=== PATIENT | male | born 1935 | race Caucasian/White ===

== ENCOUNTER 2017-04-10 18:51 | Inpatient (IN) | payer MEDICARE, OTHER ==
[~2017-04-10] VITALS: Ht 175.2 cm; Wt 60.6 kg
--- NOTE | ~2017-04-10 | WRIGHTHP ---
[place], [place] PATIENT HISTORY AND PHYSICAL EXAM [id number] #: [id number] ROOM: 522 DOCTOR: YOSVANY DIAZ MD BIRTHDATE: [birth year] DOS: 04/11/2017 HISTORY OF PRESENT ILLNESS: The patient is an 81-year-old gentleman with a past medical history of: 1. Adult failure to thrive, recurrent falls and poor compliance with treatment and poor insight into medical issues. 2. Benign essential hypertension, poorly controlled. 3. Benign prostatic hypertrophy. 4. Chronic kidney disease stage 3. 5. Left ventricular hypertrophy. 6. Multiinfarct dementia. 7. Small vessel disease of the brain. 8. Chronic atrial fibrillation with patient not anticoagulated because he is a high risk for falling injury and bleeding. The patient presented to [facility] and was seen by Dr. Pace for feeling very weak, palpitations and he was found to be in atrial fibrillation with rapid ventricular response. Dr. Pace recommended admission and further management. The patient apparently lives at home and he was having ambulatory dysfunction. No chest pain. No fainting episode. No other GI or urinary symptoms. REVIEW OF SYSTEMS: LUNGS: With chronic shortness of breath. GASTROINTESTINAL: No nausea, vomiting, diarrhea or constipation. CARDIOVASCULAR: No chest pain, he does complain of palpitations. FAMILY HISTORY: Noncontributory. MEDICATIONS: Flomax, Plavix, lisinopril and Norvasc. PHYSICAL EXAMINATION: GENERAL: Alert and oriented, poor historian. Generalized weakness. VITAL SIGNS: Blood pressure 120/86, heart rate 60 beats per minute, going up to 98 beats per minute, breathing 20 times per minute, temperature of 98.1 degrees Fahrenheit. HEENT AND NECK: Extraocular movements are intact. Sclerae are anicteric. Oral mucosa is moist and clean. No obvious facial weakness. Neck is supple without any lymphadenopathy. No thyromegaly. No JVD. No carotid arterial bruits. LUNGS: Clear to auscultation. No wheezing. No rhonchi. CARDIOVASCULAR SYSTEM: Heart rate was irregularly irregular in rate and rhythm. S1 and S2 audible. ABDOMEN: Soft, nontender. No obvious organomegaly. Bowel sounds are present. No obvious herniation. EXTREMITIES: Without significant cyanosis or edema. Warm to touch. CENTRAL NERVOUS SYSTEM: Alert and oriented x 3. Cranial nerves II-XII are intact. Speech is normal. The patient is able to move all extremities. Normal muscle strength. Deep tendon reflexes are equal on both sides. Plantars were downgoing. [place], [place] PATIENT HISTORY AND PHYSICAL EXAM NAME: EDILBERTO HAYNES UNIT #: [id number] ROOM: 522 DOCTOR: YOSVANY DIAZ MD BIRTHDATE: [birth year] IMPRESSION: 1. Advanced adult failure to thrive with recurrent falls, palpitations. The patient started on physical therapy and I will try to get him to custodial facility for rehabilitation. 2. Ambulatory dysfunction. The patient to work with physical therapy. 3. Chronic atrial fibrillation with rapid ventricular response. The patient is not anticoagulated because of his recurrent falls and high risk for bleeding and head injury. 4. Multi-infarct dementia with small vessel disease of the brain. The patient treated with Plavix. 5. Benign essential hypertension. Blood pressures to be monitored and treated. 6. Benign prostatic hypertrophy and urinary retention, asymptomatic at this time. YOSVANY DIAZ MD CM:HISPHYS:PATIENT HISTORY AND PHYSICAL EXAMINATION 7 6 YOSVANY DIAZ MD 04/11/17 0948 interface
--- NOTE | ~2017-04-10 | DS ---
[place], [place] DISCHARGE SUMMARY NAME: EDILBERTO HAYNES UNIT #: [id number] ROOM: 522 DOCTOR: YOSVANY DIAZ MD BIRTHDATE: [birth year] DOS: 04/13/2017 DISCHARGE DIAGNOSES: 1. Adult failure to thrive, ambulatory dysfunction, recurrent falls. The patient being sent to long term facility. 2. Ambulatory dysfunction. The patient worked with physical therapy. 3. Chronic atrial fibrillation with rapid ventricular response. 4. Multi-infarct dementia and small vessel disease of the brain. 5. Benign essential hypertension. 6. Benign prostatic hyperplasia and urine retention treated. 7. Left ventricular hypertrophy. 8. Chronic kidney disease stage 3. HOSPITAL COURSE: 1. The patient presented to the Emergency Department at [facility], brought from home where his with feeling very weak, having palpitations and was seen by Dr. Pace who recommended admission and further management. The patient was admitted for atrial fibrillation with rapid ventricular response, feeling very weak, having recurrent falls and he is not a good candidate for anticoagulation because of high risk for head injury and bleed. The patient is very weak and started on physical therapy, encouraged to eat and heart rate is controlled. The patient and his have agreed to send him to long term for rehabilitation because his is unable to take care of him at home. At this time considering that he needs a lot of help with activities of daily living. 2. Multi-infarct dementia, small vessel disease of the brain. The patient is not a good historian and does get confused off and on. The patient was treated with Plavix. 3. Benign essential hypertension. Blood pressure is being monitored and controlled. 4. Advanced disability, weakness and ambulatory dysfunction. The patient being sent to long term facility for rehabilitation. LABORATORY DATA: Urine cultures negative. Blood cultures negative x 2. Urine drug screen was negative except for opioids. DISCHARGE MANAGEMENT: Milk of magnesia 30 mL daily p.r.n. for constipation, Tylenol 1 gram t.i.d. p.r.n. for pain and fever, Flomax 0.4 mg a day, Plavix 75 mg daily, lisinopril 40 mg a day and amlodipine 10 mg a day. Consult physical therapy. [place], [place] DISCHARGE SUMMARY NAME: EDILBERTO HAYNES UNIT #: [id number] ROOM: 522 DOCTOR: YOSVANY DIAZ MD BIRTHDATE: [birth year] YOSVANY DIAZ MD CM:SANDY [id number] YOSVANY DIAZ MD 04/13/17 2147 interface
--- NOTE | ~2017-04-10 | PR ---
[place], [place] PROGRESS NOTE NAME: EDILBERTO HAYNES UNIT #: [id number] ROOM: 522 DOCTOR: EMILY GASTELUM,YOSVANY Walker BIRTHDATE: [birth year] DOS: 04/12/2017 SUBJECTIVE: The patient was having severe migraine headaches today, which improved after he was given 100% oxygen. VITAL SIGNS: Blood pressure 147/92, heart rate of 100 beats per minute, breathing 20 times per minute, the patient is afebrile, standard exam except for generalized weakness. IMPRESSION: 1. Adult failure to thrive with recurrent falls and palpitations. The patient working with physical therapy and [facility]. 2. Ambulatory function. The patient working with physical therapy. 3. Chronic atrial fibrillation with rapid ventricular response, better controlled now. The patient is high risk for anticoagulation because of his recurrent falls and his high risk for bleeding and head injury. 4. Multiinfarct dementia with small-vessel disease of the brain, CT of the head being treated with Plavix. 5. Benign essential hypertension, with controlled blood pressures with treatment. 6. Benign prostatic hyperplasia and urinary retention, asymptomatic. YOSVANY DIAZ MD CM:PNTRANS [phone] YOSVANY DIAZ MD 04/12/17 2344 interface
[~2017-04-10 18:51] MED LIST: 'CLONIDINE0.1 MG PO; ACETAMINOPHEN-H1 TA2 PO; AGGRENOX 25 MG-1 CER PO; AMLODIPINE5 MG PO; AMOXICILLIN500 M2 PO; AMOXICILLIN500 M3 PO; AMOXICILLIN500 MG PO; ARTHRITIS PAIN325 M1 PO; ASPIRIN E.C.325 MG PO; ASPIRIN325 M2 PO; BACTROBAN NASAL1 GM NS; CATAPRES PO; CATAPRES T0.3 MG/24 T; CIPRO500 MG PO; CIPROFLOXACIN500 MG PO; FLOMAX0.4 MG PO; FLONASE0.05 MG/AC NS; HYDROCODONE BIT1 T11 PO; HYDROCODONE BIT1 T20 PO; LIPITOR10 MG PO; NORCO 7.5-3251 EACH PO; NORVASC10 MG PO; OYSTER SHELL 51 EACH PO; PLAVIX75 M1 PO; PRILOSEC20 MG PO; QUINAPRIL10 MG PO; QUINAPRIL20 MG PO; VICO10300 PO; ZYRTEC10 MG PO
[2017-04-10 19:10] VITALS: BP 147/101
[2017-04-10] MEDS ORDERED: AMLODIPINE BESY1 TAB PO (19:12)
[2017-04-10 20:03] LABS: BASO % 0.4 % (0.0-1.0); EOS # 0.1 10*3/uL (0.0-0.4); EOS % 0.9 % (1.0-4.0); HEMATOCRIT 47.5 % (42.0-52.0); HEMOGLOBIN 15.4 g/dl (14.0-18.0); LYMPH # 2.2 10*3/uL (1.3-4.4); LYMPH % 28.6 % (27.0-41.0); MEAN CELL VOLUME 85.4 fl (80.0-94.0); MEAN CORPUSCULAR HGB 27.7 pg (27.0-31.0); MEAN CORPUSCULAR HGB CONC 32.4 g/dl (33.0-37.0); MEAN PLATELET VOLUME 9.9 fl (9.6-12.3); MONO # 0.5 10*3/uL (0.1-1.0); MONO % 6.5 % (3.0-9.0); NEUT # 4.8 10*3/uL (2.3-7.9); NEUT % 63.2 % (47.0-73.0); PLATELET COUNT AUTOMATED 200 10*3/uL (130-400); RED BLOOD COUNT 5.56 10*6/uL (4.50-5.90); RED CELL DISTRI WIDTH 16.2 % (0-14.5); WHITE BLOOD COUNT 7.5 10*3/uL (4.8-10.8)
[2017-04-10 20:16] LABS: PROTHROMBIN TIME 10.8 SECONDS (9.0-12.4)
[2017-04-10 20:19] LABS: ALBUMIN 3.5 gm/dl (3.1-4.5); ALKALINE PHOSPHATASE 84 U/L (45-117); BILIRUBIN, TOTAL 0.6 mg/dl (0.2-1.0); BUN 21 mg/dl (7-24); C-REACTIVE PROTEIN 0.67 MG/DL (0-0.3); CARBON DIOXIDE 28 mmol/L (21-32); CHLORIDE 105 mmol/L (98-107); EST GLOM FILT AFRICAN AMERICAN 52 ml/min; GLUCOSE 104 mg/dL (65-99); MAGNESIUM 2.1 mg/dL (1.5-2.1); SGOT/AST 7 IU/L (3-35); SGPT/ALT 11 U/L (12-78); SODIUM 140 mmol/L (136-145)
[2017-04-10 20:20] LABS: TROPONIN I < 0.015 ng/ml (<0.045)
[2017-04-10 20:35] LABS: BILIRUBIN 1+ (NEGATIVE); BLOOD TRACE-LYSED (NEGATIVE); CLARITY CLEAR (CLEAR); COLOR YELLOW (YELLOW); GLUCOSE NEGATIVE (NEGATIVE); KETONE NEGATIVE (NEGATIVE); LEUKO ESTERASE TRACE (NEGATIVE); NITRITE NEGATIVE (NEGATIVE); PH 5.5 (5.0-9.0); PROTEIN 2+ (NEGATIVE); SPECIFIC GRAVITY >= 1.030 (1.005-1.030); UROBILINOGEN 0.2 E.U./dl (0.2-1.0)
[2017-04-10 20:40] LABS: URINE REFLEX COMMENT YES (NO)
[2017-04-10 20:42] LABS: BACTERIA TRACE
[2017-04-10 20:44] LABS: URINE AMPHETAMINES < 1000 (1000ng/ml); URINE BARBITURATES < 200 (200ng/ml); URINE COCAINE < 300 (300ng/ml)
[2017-04-10 20:51] VITALS: BP 115/72
[2017-04-10 23:00] VITALS: BP 155/97
[2017-04-10] MEDS ORDERED: QUINAPRIL40 MG PO (23:20)
[2017-04-11] VITALS: BP 155/97
[2017-04-11 08:00] VITALS: BP 120/86
[2017-04-11 16:09] VITALS: BP 155/87
[2017-04-11 20:14] VITALS: BP 114/75
[2017-04-12] VITALS: BP 152/87
[2017-04-12 08:00] VITALS: BP 142/93
[2017-04-12 12:00] VITALS: BP 136/86
[2017-04-12 16:00] VITALS: BP 147/92
[2017-04-12 20:00] VITALS: BP 142/88
[2017-04-13] VITALS: BP 152/76
[2017-04-13 08:00] VITALS: BP 140/80
[2017-04-13 12:00] VITALS: BP 157/90
[2017-04-13 16:00] VITALS: BP 141/78
[2017-04-13] MEDS ORDERED: TYLENOL EXTRA500 M2 PO (17:05)
== END 2017-04-13 19:19 | disposition other institution (70) | DRG 308 ==
LOC: ED 18:51 → EDHOLD 21:32 → 5E 21:32
PROVIDERS: Emergency Medicine Emergency Medical Services
DX: I48.2 Chronic atrial fibrillation (principal); G93.41 Metabolic encephalopathy; I69.954 Hemiplegia and hemiparesis following unspecified cerebrovascular disease affecting left non-dominant side; F01.50 Vascular dementia, unspecified severity, without behavioral disturbance, psychotic disturbance, mood disturbance, and anxiety; R62.7 Adult failure to thrive; R26.89 Other abnormalities of gait and mobility; R29.6 Repeated falls; R33.9 Retention of urine, unspecified; G43.909 Migraine, unspecified, not intractable, without status migrainosus; X58.XXXA Exposure to other specified factors, initial encounter; N40.0 Benign prostatic hyperplasia without lower urinary tract symptoms; N18.3 Chronic kidney disease, stage 3 (moderate); I12.9 Hypertensive chronic kidney disease with stage 1 through stage 4 chronic kidney disease, or unspecified chronic kidney disease; Z91.048 Other nonmedicinal substance allergy status; Z79.899 Other long term (current) drug therapy

== ENCOUNTER 2017-06-16 16:54 | Emergency (ER) | payer MEDICARE, OTHER ==
[~2017-06-16] VITALS: Ht 175.2 cm; Wt 59.0 kg
[~2017-06-16 16:54] MED LIST changes: +AMLODIPINE BESY1 TAB PO; +QUINAPRIL40 MG PO; +TYLENOL EXTRA500 M2 PO
[2017-06-16] MEDS ORDERED: NORVASC10 MG PO ×2 (17:08→17:09)
[2017-06-16] MEDS ORDERED: AMLODIPINE BES2.5 MG PO (17:09)
[2017-06-16] MEDS ORDERED: QUINAPRIL20 MG PO (17:10)
[2017-06-16] MEDS ORDERED: NORCO 5-325 TA1 EACH PO (17:11)
== END 2017-06-16 18:36 | disposition home or self-care (01) ==
LOC: ED 16:54
DX: R04.0 Epistaxis (principal); I48.91 Unspecified atrial fibrillation; G43.909 Migraine, unspecified, not intractable, without status migrainosus; I12.9 Hypertensive chronic kidney disease with stage 1 through stage 4 chronic kidney disease, or unspecified chronic kidney disease; N18.9 Chronic kidney disease, unspecified; Z86.73 Personal history of transient ischemic attack (TIA), and cerebral infarction without residual deficits; Z98.890 Other specified postprocedural states; Z90.49 Acquired absence of other specified parts of digestive tract

== ENCOUNTER 2017-11-20 07:17 | Inpatient (IN) | payer MEDICARE, OTHER ==
[2017-11-20] VITALS (7 sets, daily range): BP systolic 101–184; BP diastolic 66–128
[~2017-11-20] VITALS: Ht 175.2 cm; Wt 62.2 kg
--- NOTE | ~2017-11-20 | PR ---
[place], [place] PROGRESS NOTE NAME: EDILBERTO HAYNES UNIT #: [id number] ROOM: 509 DOCTOR: YOSVANY DIAZ MD BIRTHDATE: [birth year] DOS: 11/21/2017 SUBJECTIVE: The patient is feeling better. His is present with him and he is agreeing to go to detention facility. OBJECTIVE: VITAL SIGNS: Blood pressure 150/85, heart rate of 71 beats per minute, breathing 18 times per minute, temperature 98 degrees Fahrenheit. GENERAL APPEARANCE: The patient is alert and oriented x 3, in no visible distress. HEENT AND NECK: Exam within normal limits. CARDIOVASCULAR SYSTEM: Heart rate is regular in rate and rhythm. S1 and S2 normally audible. LUNGS: Clear to auscultation. ABDOMEN: Soft, nontender. No obvious organomegaly. Bowel sounds are present. EXTREMITIES: Without significant cyanosis or edema. PSYCHIATRIC: Mental confusion. IMPRESSION: 1. The patient is pleasantly confused, late onset Alzheimer's type dementia, which is gradually worsening. The patient is on Exelon. 2. Chronic atrial fibrillation with rapid ventricular response, heart rate normalized with treatment. 3. Benign essential hypertension, with better controlled blood pressures now with treatment. I will convert his short-acting Cardizem to long-acting Cardizem today. 4. Adult failure to thrive. The patient is working with physical therapy and waiting for transfer to detention facility. 5. Benign prostatic hypertrophy and urine retention. The patient checked with bladder scan. 6. Chronic atrial fibrillation. The patient is not a good candidate for anticoagulation. He is falling repeatedly. 7. The patient going for detention for rehabilitation. [place], [place] PROGRESS NOTE NAME: EDILBERTO HAYNES UNIT #: [id number] ROOM: 509 DOCTOR: YOSVANY DIAZ MD BIRTHDATE: [birth year] YOSVANY DIAZ MD CM:PNTRANS [id number] YOSVANY DIAZ MD 11/21/17 190 interface
--- NOTE | ~2017-11-20 | WRIGHTHP ---
[place], [place] PATIENT HISTORY AND PHYSICAL EXAM NAME: EDILBERTO HAYNES UNIT #: [id number] ROOM: 509 DOCTOR: YOSVANY DIAZ MD BIRTHDATE: [birth year] DOS: 11/20/2017 HISTORY OF PRESENT ILLNESS: The patient is an 82-year-old gentleman with a past medical history of: 1. Adult failure to thrive and ambulatory dysfunction with recurrent falls. 2. Chronic atrial fibrillation. The patient is not a good candidate for anticoagulation because of repeat injuries and falls. 3. Late onset Alzheimer's type dementia. 4. Benign essential hypertension. 5. BPH and urine retention. 6. Left ventricular hypertrophy. 7. Chronic kidney disease stage 3. The patient lives at home with the help of his who brought him in with a DNR/comfort care code status to the Emergency Department for placement because the patient was not doing well at home and she is unable to take care of him. The patient has been falling repeatedly and unable to ambulate. In the ER, the patient was found to have rapid heart rate with chronic atrial fibrillation. After admission, the patient is starting to feel better. He is pleasantly confused, in no visible distress. No chest pain, shortness of breath, GI or urinary symptoms, but the patient complains of chronic left shoulder pains. REVIEW OF SYSTEMS: LUNGS: No increasing shortness of breath. GASTROINTESTINAL: No nausea, vomiting, diarrhea or constipation. CARDIOVASCULAR: The patient with no complaints of palpitations. FAMILY HISTORY: Noncontributory. SOCIAL HISTORY: , lives at home with his , advanced disability. No recent smoking cigarettes, alcohol and drug abuse. MEDICATIONS: Flomax, Plavix, amlodipine. ALLERGIES: No known drug allergies. PHYSICAL EXAMINATION: GENERAL: Alert, awake, oriented to place and person, in no visible distress, except for generalized weakness and the patient is a poor historian. VITAL SIGNS: Blood pressure 170/100, heart rate of 108 beats per minute, breathing 16 times per minute, temperature 98 degrees Fahrenheit. HEENT AND NECK: Extraocular movements are intact. Sclerae are anicteric. Oral mucosa is moist and clean. No obvious facial weakness. Neck is supple without any lymphadenopathy. No thyromegaly. No JVD. No carotid arterial bruits. LUNGS: Clear to auscultation. No wheezing. No rhonchi. CARDIOVASCULAR SYSTEM: Heart rate is irregularly irregular in rate and rhythm. S1, S2 audible. ABDOMEN: Soft, nontender. No obvious organomegaly. Bowel sounds are present. No obvious herniation. EXTREMITIES: Without significant cyanosis or edema. Warm to touch. [place], [place] PATIENT HISTORY AND PHYSICAL EXAM NAME: EDILBERTO HAYNES UNIT #: [id number] ROOM: [facility] DOCTOR: YOSVANY DIAZ MD BIRTHDATE: [birth year] CENTRAL NERVOUS SYSTEM: Alert and oriented x 3. Cranial nerves II-XII are intact. Speech is normal. The patient is able to move all extremities. Normal muscle strength. Deep tendon reflexes are equal on both sides. Plantars were downgoing. LABORATORY DATA: X-rays of the ribs, cervical spine and CT of the head showed no acute abnormality. BUN and creatinine 19 and 1.37. PT, PTT baseline. Hemoglobin 12.9. IMPRESSION AND PLAN: 1. The patient with late onset Alzheimer's type dementia and advanced disability. I will keep him on Exelon. 2. Chronic atrial fibrillation with rapid ventricular response. The patient has been put on a director cardiac and I will stop his amlodipine and instead start him on Cardizem to slow his heart rate down and have Cardiology on consult. 3. Chronic atrial fibrillation. The patient is not a good candidate for anticoagulation because he is high risk for injury, bleeding and especially injury to the head from falls. 4. Benign prostatic hypertrophy and urine retention, treated with Flomax and I will add Avodart and watch for any urine retention. 5. The patient now maintains a DNR/comfort care code status, but he is being monitored to regulate his heart rate with atrial fibrillation. 6. Adult failure to thrive and advanced disability. The patient is to work with Physical Therapy. 7. coordinator of genetic services consulted for [facility] placement. 8. Benign prostatic hypertrophy and urine retention. I will look for urine retention with bladder scan and then treat accordingly. YOSVANY DIAZ MD CM:HISPHYS:PATIENT HISTORY AND PHYSICAL EXAMINATION 1120 [id number] YOSVANY DIAZ MD 11/20/17 1134 interface
[~2017-11-20 07:17] MED LIST changes: +AMLODIPINE BES2.5 MG PO; +NORCO 5-325 TA1 EACH PO
[2017-11-20] MEDS ORDERED: PLAVIX75 M1 PO (07:29)
[2017-11-20 08:04] LABS: BASO % 0.5 % (0.0-1.0); EOS # 0.1 10*3/uL (0.0-0.4); EOS % 0.8 % (1.0-4.0); HEMATOCRIT 41.7 % (42.0-52.0); HEMOGLOBIN 12.9 g/dl (14.0-18.0); LYMPH # 2.4 10*3/uL (1.3-4.4); LYMPH % 31.1 % (27.0-41.0); MEAN CELL VOLUME 79.7 fl (80.0-94.0); MEAN CORPUSCULAR HGB 24.7 pg (27.0-31.0); MEAN CORPUSCULAR HGB CONC 30.9 g/dl (33.0-37.0); MONO # 0.4 10*3/uL (0.1-1.0); MONO % 5.3 % (3.0-9.0); NEUT # 4.7 10*3/uL (2.3-7.9); NEUT % 61.9 % (47.0-73.0); PLATELET COUNT AUTOMATED 230 10*3/uL (130-400); RED BLOOD COUNT 5.23 10*6/uL (4.50-5.90); RED CELL DISTRI WIDTH 16.6 % (0-14.5); WHITE BLOOD COUNT 7.6 10*3/uL (4.8-10.8)
[2017-11-20 08:13] LABS: ACT PARTIAL THROMBO TIME 22.8 SECONDS (20.8-31.5)
[2017-11-20 08:20] LABS: ALBUMIN 3.6 gm/dl (3.1-4.5); ALKALINE PHOSPHATASE 106 U/L (45-117); BUN 19 mg/dl (7-24); CHLORIDE 106 mmol/L (98-107); CREATININE 1.37 mg/dL (0.70-1.30); POTASSIUM 3.9 mmol/L (3.5-5.1); SGOT/AST 7 IU/L (3-35); SGPT/ALT 12 U/L (12-78); SODIUM 140 mmol/L (136-145); TOTAL PROTEIN 7.3 gm/dL (6.4-8.2)
[2017-11-20 08:29] LABS: TROPONIN I < 0.015 ng/ml (<0.045)
[2017-11-20 08:47] LABS: BILIRUBIN NEGATIVE (NEGATIVE); BLOOD TRACE-INTACT (NEGATIVE); CLARITY CLEAR (CLEAR); COLOR YELLOW (YELLOW); GLUCOSE NEGATIVE (NEGATIVE); KETONE NEGATIVE (NEGATIVE); LEUKO ESTERASE NEGATIVE (NEGATIVE); NITRITE NEGATIVE (NEGATIVE); PH 6.5 (5.0-9.0); UROBILINOGEN 0.2 E.U./dl (0.2-1.0)
[2017-11-20 08:56] LABS: BACTERIA TRACE
[2017-11-20] MEDS ORDERED: FLOMAX0.4 MG PO (09:33)
[2017-11-21] VITALS: BP 115/55
[2017-11-21 07:27] LABS: BASO % 0.4 % (0.0-1.0); EOS # 0.1 10*3/uL (0.0-0.4); EOS % 1.4 % (1.0-4.0); HEMATOCRIT 38.4 % (42.0-52.0); HEMOGLOBIN 12.2 g/dl (14.0-18.0); LYMPH # 2.5 10*3/uL (1.3-4.4); LYMPH % 35.5 % (27.0-41.0); MEAN CELL VOLUME 79.5 fl (80.0-94.0); MEAN CORPUSCULAR HGB 25.3 pg (27.0-31.0); MEAN CORPUSCULAR HGB CONC 31.8 g/dl (33.0-37.0); MEAN PLATELET VOLUME 10.3 fl (9.6-12.3); MONO # 0.5 10*3/uL (0.1-1.0); MONO % 6.6 % (3.0-9.0); NEUT % 55.8 % (47.0-73.0); PLATELET COUNT AUTOMATED 210 10*3/uL (130-400); RED BLOOD COUNT 4.83 10*6/uL (4.50-5.90); RED CELL DISTRI WIDTH 16.6 % (0-14.5); WHITE BLOOD COUNT 7.1 10*3/uL (4.8-10.8)
[2017-11-21 07:47] LABS: POTASSIUM 3.9 mmol/L (3.5-5.1)
[2017-11-21 07:55] LABS: CREATININE 1.45 mg/dL (0.70-1.30)
[2017-11-21 08:00] VITALS: BP 160/89
[2017-11-21 12:00] VITALS: BP 150/85
[2017-11-21 20:07] VITALS: BP 154/91
[2017-11-22 00:03] VITALS: BP 129/79; BP 153/92
[2017-11-22 08:00] VITALS: BP 160/98
[2017-11-22] MEDS ORDERED: DILTIAZEM CD240 MG PO (11:15)
[2017-11-22] MEDS ORDERED: TYLENOL EXTRA500 M2 PO (11:15)
[2017-11-22] MEDS ORDERED: RIVASTIGMINE TAR3 M1 PO (11:15)
[2017-11-22 12:00] VITALS: BP 122/110
[2017-11-22 14:15] VITALS: BP 130/110
[2017-11-22 16:00] VITALS: BP 129/98
[2017-11-22 20:00] VITALS: BP 152/87
[2017-11-23 01:13] VITALS: BP 160/82
[2017-11-23 08:00] VITALS: BP 152/90
== END 2017-11-23 13:55 | disposition other institution (70) | DRG 308 ==
LOC: ED 07:17 → EDHOLD 08:46 → 5E 08:46
PROVIDERS: Emergency Medicine; Internal Medicine
DX: I48.91 Unspecified atrial fibrillation (principal); G93.41 Metabolic encephalopathy; S22.42XA Multiple fractures of ribs, left side, initial encounter for closed fracture; F01.51 Vascular dementia, unspecified severity, with behavioral disturbance; E83.41 Hypermagnesemia; G30.1 Alzheimer's disease with late onset; I16.1 Hypertensive emergency; I12.9 Hypertensive chronic kidney disease with stage 1 through stage 4 chronic kidney disease, or unspecified chronic kidney disease; N18.3 Chronic kidney disease, stage 3 (moderate); R29.6 Repeated falls; R62.7 Adult failure to thrive; R26.81 Unsteadiness on feet; D50.9 Iron deficiency anemia, unspecified; N40.1 Benign prostatic hyperplasia with lower urinary tract symptoms; R33.8 Other retention of urine; Z66 Do not resuscitate; Z51.5 Encounter for palliative care; W18.39XA Other fall on same level, initial encounter; Z86.73 Personal history of transient ischemic attack (TIA), and cerebral infarction without residual deficits; Z90.49 Acquired absence of other specified parts of digestive tract; Z87.891 Personal history of nicotine dependence; Z88.8 Allergy status to other drugs, medicaments and biological substances; Z79.899 Other long term (current) drug therapy; Y93.89 Activity, other specified; Y92.89 Other specified places as the place of occurrence of the external cause; Y99.8 Other external cause status

== ENCOUNTER 2017-12-01 19:44 | Emergency (ER) | payer MEDICARE, OTHER ==
[~2017-12-01] VITALS: Ht 170.1 cm; Wt 61.2 kg
[~2017-12-01 19:44] MED LIST changes: +DILTIAZEM CD240 MG PO; +RIVASTIGMINE TAR3 M1 PO
[2017-12-01 20:26] LABS: BASO # 0.1 10*3/uL (0.0-0.1); BASO % 0.5 % (0.0-1.0); EOS # 0.2 10*3/uL (0.0-0.4); EOS % 2.1 % (1.0-4.0); HEMATOCRIT 38.3 % (42.0-52.0); HEMOGLOBIN 11.9 g/dl (14.0-18.0); LYMPH # 2.5 10*3/uL (1.3-4.4); LYMPH % 26.6 % (27.0-41.0); MEAN CELL VOLUME 79.5 fl (80.0-94.0); MEAN CORPUSCULAR HGB 24.7 pg (27.0-31.0); MEAN CORPUSCULAR HGB CONC 31.1 g/dl (33.0-37.0); MEAN PLATELET VOLUME 9.6 fl (9.6-12.3); MONO # 0.7 10*3/uL (0.1-1.0); MONO % 7.6 % (3.0-9.0); NEUT # 5.9 10*3/uL (2.3-7.9); NEUT % 62.9 % (47.0-73.0); PLATELET COUNT AUTOMATED 301 10*3/uL (130-400); RED BLOOD COUNT 4.82 10*6/uL (4.50-5.90); RED CELL DISTRI WIDTH 17.9 % (0-14.5); WHITE BLOOD COUNT 9.4 10*3/uL (4.8-10.8)
[2017-12-01 20:43] LABS: ALBUMIN 3.2 gm/dl (3.1-4.5); CREATININE 1.6 mg/dL (0.70-1.30); POTASSIUM 3.8 mmol/L (3.5-5.1); TOTAL PROTEIN 6.4 gm/dL (6.4-8.2)
[2017-12-01 20:50] LABS: TROPONIN I 0.021 ng/ml (<0.045)
[2017-12-01 20:51] LABS: ACT PARTIAL THROMBO TIME 21.1 SECONDS (20.8-31.5); INTERNATIONAL NORM RATIO 0.9 (2.0-3.5)
[2017-12-01 22:54] LABS: BILIRUBIN NEGATIVE (NEGATIVE); BLOOD TRACE-INTACT (NEGATIVE); CLARITY CLEAR (CLEAR); COLOR YELLOW (YELLOW); GLUCOSE NEGATIVE (NEGATIVE); KETONE TRACE (NEGATIVE); LEUKO ESTERASE NEGATIVE (NEGATIVE); NITRITE NEGATIVE (NEGATIVE); PH 5.5 (5.0-9.0); SPECIFIC GRAVITY >= 1.030 (1.005-1.030); UROBILINOGEN 0.2 E.U./dl (0.2-1.0)
[2017-12-01 23:09] LABS: BACTERIA 1+
== END 2017-12-01 23:40 | disposition short-term general hospital (02) ==
LOC: ED 19:44
PROVIDERS: Student in an Organized Health Care Education/Training Program
DX: I63.9 Cerebral infarction, unspecified (principal); I48.91 Unspecified atrial fibrillation; I12.9 Hypertensive chronic kidney disease with stage 1 through stage 4 chronic kidney disease, or unspecified chronic kidney disease; N18.9 Chronic kidney disease, unspecified; Z86.718 Personal history of other venous thrombosis and embolism; Z79.899 Other long term (current) drug therapy; Z87.891 Personal history of nicotine dependence

== ENCOUNTER 2018-01-04 10:26 | Emergency (ER) | payer MEDICARE, OTHER ==
[~2018-01-04] VITALS: Ht 175.2 cm; Wt 57.6 kg
[2018-01-04 10:48] LABS: BASO % 0.3 % (0.0-1.0); EOS # 0.2 10*3/uL (0.0-0.4); EOS % 3.7 % (1.0-4.0); HEMATOCRIT 41.8 % (42.0-52.0); HEMOGLOBIN 12.8 g/dl (14.0-18.0); LYMPH # 1.3 10*3/uL (1.3-4.4); LYMPH % 21.3 % (27.0-41.0); MEAN CELL VOLUME 78.3 fl (80.0-94.0); MEAN CORPUSCULAR HGB CONC 30.6 g/dl (33.0-37.0); MEAN PLATELET VOLUME 9.3 fl (9.6-12.3); MONO # 0.3 10*3/uL (0.1-1.0); MONO % 5.7 % (3.0-9.0); NEUT # 4.1 10*3/uL (2.3-7.9); NEUT % 68.7 % (47.0-73.0); PLATELET COUNT AUTOMATED 292 10*3/uL (130-400); RED BLOOD COUNT 5.34 10*6/uL (4.50-5.90); RED CELL DISTRI WIDTH 19.7 % (0-14.5)
[2018-01-04 11:04] LABS: ALBUMIN 3.7 gm/dl (3.1-4.5); ALKALINE PHOSPHATASE 147 U/L (45-117); BUN 24 mg/dl (7-24); CHLORIDE 108 mmol/L (98-107); CREATININE 1.57 mg/dL (0.70-1.30); POTASSIUM 4.3 mmol/L (3.5-5.1); SGOT/AST 6 IU/L (3-35); SGPT/ALT 13 U/L (12-78); SODIUM 140 mmol/L (136-145); TOTAL PROTEIN 7.6 gm/dL (6.4-8.2)
[2018-01-04 11:05] LABS: TROPONIN I < 0.015 ng/ml (<0.045)
[2018-01-04] MEDS ORDERED: AVPAK AZITHROM250 M1 PO (11:23)
[2018-01-04] MEDS ORDERED: CLARITIN10 MG PO (11:23)
[2018-01-04] MEDS ORDERED: TESSALON PERLE100 M1 PO (11:23)
[2018-01-04] MEDS ORDERED: PREDNISONE10 MG PO (11:23)
[2018-01-05] MEDS ORDERED: REMERON15 M2 PO (11:18)
[2018-01-05] MEDS ORDERED: MOBIC7.5 MG PO (11:20)
== END 2018-01-04 11:40 | disposition home or self-care (01) ==
LOC: ED 10:26
PROVIDERS: Nurse Practitioner Family
DX: J20.9 Acute bronchitis, unspecified (principal); I48.91 Unspecified atrial fibrillation; I10 Essential (primary) hypertension; Z79.899 Other long term (current) drug therapy; Z86.73 Personal history of transient ischemic attack (TIA), and cerebral infarction without residual deficits; Z87.891 Personal history of nicotine dependence; Z90.49 Acquired absence of other specified parts of digestive tract; Z98.890 Other specified postprocedural states

== ENCOUNTER 2018-01-05 11:13 | Emergency (ER) | payer MEDICARE, OTHER ==
[~2018-01-05] VITALS: Ht 182.8 cm; Wt 81.6 kg
[~2018-01-05 11:13] MED LIST changes: +AVPAK AZITHROM250 M1 PO; +CLARITIN10 MG PO; +PREDNISONE10 MG PO; +TESSALON PERLE100 M1 PO
[2018-01-05] MEDS ORDERED: REMERON15 M2 PO (11:18)
[2018-01-05] MEDS ORDERED: MOBIC7.5 MG PO (11:20)
[2018-01-05 11:48] LABS: BASO % 0.1 % (0.0-1.0); EOS % 0.2 % (1.0-4.0); HEMATOCRIT 37.6 % (42.0-52.0); HEMOGLOBIN 11.9 g/dl (14.0-18.0); LYMPH # 1.5 10*3/uL (1.3-4.4); LYMPH % 7.6 % (27.0-41.0); MEAN CORPUSCULAR HGB 24.7 pg (27.0-31.0); MEAN CORPUSCULAR HGB CONC 31.6 g/dl (33.0-37.0); MEAN PLATELET VOLUME 9.4 fl (9.6-12.3); MONO # 0.4 10*3/uL (0.1-1.0); MONO % 1.9 % (3.0-9.0); NEUT # 17.9 10*3/uL (2.3-7.9); NEUT % 89.7 % (47.0-73.0); PLATELET COUNT AUTOMATED 293 10*3/uL (130-400); RED BLOOD COUNT 4.82 10*6/uL (4.50-5.90); RED CELL DISTRI WIDTH 19.7 % (0-14.5); WHITE BLOOD COUNT 19.9 10*3/uL (4.8-10.8)
[2018-01-05 12:05] LABS: BILIRUBIN NEGATIVE (NEGATIVE); BLOOD NEGATIVE (NEGATIVE); CLARITY SL CLOUDY (CLEAR); COLOR YELLOW (YELLOW); GLUCOSE NEGATIVE (NEGATIVE); KETONE TRACE (NEGATIVE); LEUKO ESTERASE NEGATIVE (NEGATIVE); NITRITE NEGATIVE (NEGATIVE); PH 5.5 (5.0-9.0); SPECIFIC GRAVITY >= 1.030 (1.005-1.030); UROBILINOGEN 0.2 E.U./dl (0.2-1.0)
[2018-01-05 12:07] LABS: ALBUMIN 3.7 gm/dl (3.1-4.5); ALKALINE PHOSPHATASE 140 U/L (45-117); CHLORIDE 104 mmol/L (98-107); CPK 53 U/L (39-308); CREATININE 1.99 mg/dL (0.70-1.30); POTASSIUM 4.8 mmol/L (3.5-5.1); SGOT/AST 7 IU/L (3-35); SGPT/ALT 13 U/L (12-78); SODIUM 136 mmol/L (136-145); TOTAL PROTEIN 7.7 gm/dL (6.4-8.2)
[2018-01-05 12:09] LABS: BUN 36 mg/dl (7-24); TROPONIN I < 0.015 ng/ml (<0.045)
[2018-01-05 12:13] LABS: HYALINE CAST 16-20
[2018-01-05 12:14] LABS: BACTERIA 1+; MUCOUS 1+
== END 2018-01-05 12:55 | disposition short-term general hospital (02) ==
LOC: ED 11:13
PROVIDERS: Emergency Medicine
DX: I63.9 Cerebral infarction, unspecified (principal); I12.9 Hypertensive chronic kidney disease with stage 1 through stage 4 chronic kidney disease, or unspecified chronic kidney disease; N18.9 Chronic kidney disease, unspecified; I48.91 Unspecified atrial fibrillation; Z86.73 Personal history of transient ischemic attack (TIA), and cerebral infarction without residual deficits; N40.0 Benign prostatic hyperplasia without lower urinary tract symptoms; Z90.49 Acquired absence of other specified parts of digestive tract